=== PATIENT | male | born 1935 | race Caucasian/White ===

== ENCOUNTER → 2023-07-28 11:12 | Outpatient (REF) | payer MEDICARE, SELFPAY | LOC: RAD 11:12 | PROVIDERS: ATTENDING PHYSICIAN Surgery Vascular Surgery; FAMILY PHYSICIAN Family Medicine | DX: I73.9 Peripheral vascular disease, unspecified (principal); R60.0 Localized edema | CPT/HCPCS: 93922; 93925 ==

== ENCOUNTER 2023-11-05 09:43 | Emergency (ER) | payer MEDICARE, SELFPAY ==
[2023-11-05 09:48] VITALS: BMI 31.9
--- NOTE | 2023-11-05 09:55 | ED.GENMED ---
History of Present Illness
General
Chief Complaint: Fainting/Passed Out
Time Seen by Provider: 11/05/23 09:46
History of Present Illness
History of Present Illness:
88-year-old male with history of hypertension, hyperlipidemia, reported hydrocephalus presenting to the emergency department after a syncopal episode. Patient presents from assisted living facility where he was eating breakfast, had a witnessed
syncopal episode, without reported fall. After the episode, patient vomited. Notes that he has had the symptoms in the past, recurrent. Syncope was preceded by feeling dizzy/off-balance. Notes that he has had the symptoms in the past. Denies
associated chest pain, difficulty breathing, abdominal pain. Denies focal weakness or sensory deficits to his extremities. Denies recent fever or illness. Denies additional acute medical complaints.
Past History
Past History
ED Past Medical History: CVA
ED Past Surgical History: None
Social History
Tobacco: Non-smoker
Alcohol: None
Drug: None
Phy Exam
Physical Exam
Physical Exam:
General: Well-appearing, no clinical signs of dehydration, nontoxic and in no acute distress
HEENT: protecting airway
Neck: appears supple
CV: Normal heart rate, regular rhythm, no evidence of cyanosis
Resp: No accessory muscle use, no increased work of breathing, lungs clear to auscultation bilaterally
Abd: Soft and non-distended, no tenderness to palpation
Extremities: No deformities, no swelling, no erythema
Neuro: alert, no focal neurologic deficit
: deferred
Rectal: deferred
Psych: Normal affect
Skin: Intact
Course
Orders/Labs/Results
Orders:
Orders
11/05/23
Urinalysis Reflex To Culture Urgent
Date Specimen was Collected: 11/05/23
Time Specimen was Collected: 11:43
11/05/23 09:56
0.9% Sodium Chloride 1000 ml [Nss] 1,000 ml IV BOLUS
11/05/23 09:57
Electrocardiogram (*1) Stat
Reason for Study: Other
Other Reason for Exam: chest pain
CT Head W/o Iv Contrast Urgent
Comment:
Reason For Exam: syncope, hx hydrocephalus
EKG- Treatment ONCE
CMP [Comprehensive Metabolic Panel] Urgent
Complete Blood Count/With Diff Urgent
11/05/23 10:03
Troponin I Urgent
11/05/23 12:36
Straight Cath As Directed
Frequency: One time now
Abnormal Lab Results
11/05/23
09:57
RBC 4.20 L 10^6/uL
(4.70-6.10)
Hct 38.7 L %
(39.0-52.0)
MCH 31.4 H pg
(27.0-31.0)
MPV 10.7 H fL
(7.4-10.4)
Absolute Neuts (auto) 6.9 H 10^3/uL
(1.4-6.5)
Absolute Monos (auto) 0.8 H 10^3/uL
(0.1-0.6)
Glucose 127 H mg/dl
(70-99)
11/05/23 09:57
11/05/23 09:57
Vital Signs
Initial and Last Documented VS:
Initial Vital Signs
Pulse Resp BP
58 15 116/73
11/05/23 10:46 11/05/23 10:46 11/05/23 10:46
Last Documented Vital Signs
Pulse Resp BP
83 14 181/96
11/05/23 14:00 11/05/23 14:00 11/05/23 14:00
MDM/Problems Addressed
MDM/Problems Addressed:
88-year-old male with history of hypertension, hyperlipidemia, hydrocephalus presenting after syncopal episode. Vital signs on arrival are normal
On exam, patient well-appearing, no acute distress or discomfort. He is awake, alert, oriented. No focal neurologic deficits. Patient afebrile, nontoxic. Unclear etiology of patient's recurrent syncopal episodes. Will screen with laboratory
analysis and EKG. Noted history of hydrocephalus in the past, which could be contributing. Denies any history of shunt placement. Reports history of dehydration in the past, which could be contributing to patient's symptoms. Will start IV
fluids. Will continue to monitor.
14:20 - Patient's labs are unremarkable. EKG without acute ischemia or arrhythmia. CT of the brain obtained, without acute process, continues to mention large ventricles, with diagnostic consideration of NPH. Patient had difficulty urinating,
notes history of BPH. Straight catheterized, negative for infection. Patient declining Smith catheter. Given recurrence of patient's symptoms, patient advised observation admission, which she has been advised in the past, however patient
adamantly declining. Patient is competent to make his incisions. He otherwise remains hemodynamically stable. Advised close follow-up with neurology. Return precautions discussed and patient verbalized understanding
*EKG
Interpreted by ED Provider?: Yes
EKG Intrepretation Date: 11/05/23
EKG Intrepretation Time: 11:29
Interpretation: normal
Comparison EKG: no changes
Heart Rate: 74
Rate: normal
Rhythm: sinus
[place]: normal axis
Interval: normal interval
QRS Pattern: normal QRS
Ischemia: no ischemia
*Critical Care Note
Total Time (30-74mins, 75-104mins- exclusive of procedures): Not Applicable
ED Attending Note
-
Portions of this chart may have been created with voice recognition software.� Occasional wrong word or��sound alike� substitutions may have occurred due to the inherent limitations of voice recognition software.
Discharge Plan
Departure
Prescriptions:
No Action
cilostazol 100 mg Tablet
100 mg PO BID
atorvastatin 20 mg Tablet
20 mg PO DAILY
tamsulosin 0.4 mg Capsule
0.4 mg PO BID
cholecalciferol (vitamin D3) [Vitamin D3] 50 mcg (2,000 unit) Capsule
50 mcg PO DAILY
Cequa 0.09 % Dropperette
1 drp BOTH EYES BID
lisinopril-hydrochlorothiazide 20-12.5 mg Tablet
1 tab PO DAILY
aspirin 81 mg Tablet,Delayed Release (Dr/Ec)
81 mg PO DAILY
tramadol 50 mg Tablet
50 mg PO DAILYPRN PRN (Reason: severe pain)
metoprolol succinate [Toprol XL] 25 mg Tablet Extended Release 24 Hr
25 mg PO QPM
dutasteride 0.5 mg Capsule
0.5 mg PO Q48H
loperamide 2 mg Capsule
2 mg PO USEASDIRECTD PRN (Reason: loose stool)
Rx Instructions:
take one tablet by mouth as needed with first loose stool, repeat with 1 tablet subsequent loose stools up to 4mg/day
trazodone 50 mg Tablet
50 mg PO HSPRN PRN (Reason: insomnia)
meloxicam 15 mg tablet
15 mg PO DAILY
fexofenadine 180 mg Tablet
180 mg PO DAILY
triamcinolone acetonide 0.1 % Cream
1 applic TOPICAL BID
zolpidem 5 mg Tablet
5 mg PO HSPRN PRN (Reason: sleep disturbance)
ketoconazole 2 % Cream
1 applic TOPICAL DAILY
Patient Comments:
apply to bottom of both feet and between toes
Refresh Classic (PF) 1.4-0.6 % Dropperette
2 drp BOTH EYES TID
memantine 21 mg capsule,sprinkle,ER 24hr
21 mg PO DAILY
Referrals:
Shqauille Ayala MD [Family Provider] -
Interventions
Interventions:
*Risk Screen - Suicide Last Done: 11/05/23 09:48
*General Assessment Last Done: 11/05/23 09:48
*Neglect/Abuse Screening Last Done: 11/05/23 09:48
ED- Fall Risk Assessment Last Done: 11/05/23 09:48
*ED COVID-19 Vaccine History Last Done: 11/05/23 09:48
ED- Cardiac Assessment Last Done: 11/05/23 09:48
ED- Neurological Assessment Last Done: 11/05/23 09:48
Discharge Date and Time
Print Language: URDU
[2023-11-05] MEDS: NSS 1000 IV (10:04)
[2023-11-05 10:31] LABS: % Basophils 0.5 % (0-2); % Eosinophils 0.9 % (0-6); % Immature Granulocytes 0.4 % (0-0.5); % Lymphocytes 20.7 % (20.5-51.1); % Monocytes 8.3 % (1.7-9.3); % Neutrophils 69.2 % (42.2-75.2); Absolute Basophils 0.1 10^3/uL (0-0.2); Absolute Eosinophils 0.1 10^3/uL (0-0.7); Absolute Lymphocytes 2.1 10^3/uL (1.2-3.4); Absolute Monocytes 0.8 10^3/uL (0.1-0.6); Absolute Neutrophils 6.9 10^3/uL (1.4-6.5); Hematocrit 38.7 % (39.0-52.0); Hemoglobin 13.2 g/dL (13.0-18.0); Mean Corp Hgb Conc. 34.1 g/dL (33.0-37.0); Mean Corpuscular Hgb 31.4 pg (27.0-31.0); Mean Corpuscular Volume 92.1 fL (80.0-94.0); Mean Platelet Volume 10.7 fL (7.4-10.4); Nucleated Red Blood Cells % 0 % (-); Platelet Count 209 10^3/uL (130-400); Red Cell Dist. Width 13.3 % (11.5-14.5); White Blood Cell Count 9.9 10^3/uL (4.8-10.8)
[2023-11-05 10:33] LABS: ALT (SGPT) 16 U/L (0-50); AST (SGOT) 20 U/L (17-59); Alkaline Phosphatase 54 U/L (38-126); Blood Urea Nitrogen 20 mg/dl (9-20); Calcium 9.2 mg/dl (8.4-10.2); Carbon Dioxide 26 mmol/L (22-30); Chloride 102 mmol/L (98-107); Estimated Creatinine Clearance 68 ml/min; Glucose 127 mg/dl (70-99); Sodium 138 mmol/L (135-145); Total Bilirubin 0.8 mg/dl (0.2-1.3); Total Protein 6.3 g/dl (6.3-8.2); eGFR > 60.00
[2023-11-05 10:44] LABS: Troponin I 0.016 ng/ml
[2023-11-05 10:46] VITALS: BP 116/73
[2023-11-05 11:00] VITALS: BP 132/72
[2023-11-05 12:00] VITALS: BP 155/111
[2023-11-05 13:00] VITALS: BP 164/92
[2023-11-05 13:29] LABS: Urine Albumin Negative (Neg - Trace); Urine Bilirubin Negative (Negative); Urine Character Clear (Clear); Urine Color Yellow; Urine Glucose Negative (Negative); Urine Ketone Negative (Negative); Urine Leukocyte Negative (Negative); Urine Nitrite Negative (Negative); Urine Occult Blood Negative (Negative); Urine Specific Gravity 1.015 (<1.030); Urine Urobilinogen Negative (Neg - 1+)
[2023-11-05 14:00] VITALS: BP 181/96
== END 2023-11-05 15:18 | disposition home or self-care (01) ==
LOC: EMR 09:43
PROVIDERS: EMERGENCY PHYSICIAN Student in an Organized Health Care Education/Training Program; FAMILY PHYSICIAN Family Medicine
DX: R55 Syncope and collapse (principal); I10 Essential (primary) hypertension; E78.00 Pure hypercholesterolemia, unspecified; G91.9 Hydrocephalus, unspecified; N40.0 Benign prostatic hyperplasia without lower urinary tract symptoms; Z86.73 Personal history of transient ischemic attack (TIA), and cerebral infarction without residual deficits
CPT/HCPCS: 99284; 96360; 70450; 80053; 81003; 84484; 85025; 93005